=== PATIENT | male | born 1940 | race Caucasian/White ===

== ENCOUNTER → 2020-03-25 | Outpatient (CLI) | payer MEDICARE ==
[~2020-03-25] MED LIST: REGADENOSON 0.4 MG/5 ML SYRINGE IV ONE
--- NOTE | 2020-03-25 13:48 | EST ---
EXERCISE STRESS DATE OF SERVICE: 03/25/2020 AGE: 80 SEX: M HT: 6'3" WT: 235 lbs PROTOCOL: Lexiscan Cardiolite STAGE: DURATION OF EXERCISE: HEART RATE REST: 86 BLOOD PRESSURE REST: 129/93 MAXIMUM HEART RATE ACHIEVED: 94 MAXIMUM BLOOD PRESSURE: 129/93 85% MPHR: 118 100% MPHR: 139 METS: INDICATIONS: Chest pain. STRESS DATA: Heart rate is 86. Pressure is 129/93 mmHg. Baseline EKG showed sinus mechanism. The patient was given 0.4 mg of Lexiscan over 15 seconds per protocol. Max heart rate was 94 beats per minute and maximum pressure was 149/93 mmHg. Clinically the patient did not have any symptoms of chest pain or chest discomfort and the EKG did not show any significant ST or T-wave abnormalities concerning for ischemia. CONCLUSION: 1. Nondiagnostic electrocardiogram stress testing in response to Lexiscan. 2. Please follow up on the Cardiolite portion on a separate report from Radiology Department. MMODL / IJN: [id number] /
--- NOTE | 2020-03-25 14:31 | NM ---
EXAMINATION TYPE: NM stress lexiscan cardiolite DATE OF EXAM: 03/25/2020 COMPARISON: NONE HISTORY: AHSD, history of hypertension, diabetes, high cholesterol, and family history of heart attac k. TECHNIQUE: After the intravenous administration of 10.36 mCi Tc 99m Sestamibi - Cardiolite resting S PECT images acquired 45 minutes post injection. The patient received 0.4mg Lexiscan, 25.5 mCi Tc 99m Sestamibi - Stress images obtained [address] injection FINDINGS: Review of stress and rest SPECT images demonstrates no distinct perfusion abnormality. Gated analysi s shows overall slight hypokinesis and overall diminished left ventricular ejection fraction estimate d at 35 %. IMPRESSION: No convincing scintigraphic evidence for reversible ischemia. Poor ejection fraction noted.
== END | disposition home or self-care (01) ==
LOC: RADNMMAIN 08:46
PROVIDERS: ATTEND Family Medicine
DX: I25.10 Atherosclerotic heart disease of native coronary artery without angina pectoris (principal)
CPT/HCPCS: 93017; 78452; A9500; J2785

== ENCOUNTER → 2020-04-17 | Outpatient (CLI) | payer MEDICARE ==
[2020-04-17 21:15] LABS: African American GFR (CKD) 65.3 (60.0-200.0); Albumin 4.2 g/dL (3.80-4.90); Albumin/Globulin Ratio 1.91 (1.60-3.17); Anion Gap 10.6 mmol/L (4.00-12.00); BUN/Creat Ratio 22.5 Ratio (12.00-20.00); Calcium 9.3 mg/dL (8.7-10.3); Carbon Dioxide 25.4 mmol/L (21.6-31.8); Globulin 2.2 g/dL (1.6-3.3); Non-African American GFR(CKD) 56.4 (60.0-200.0); Potassium 5.1 mmol/L (3.5-5.5); Total Bilirubin 0.8 mg/dL (0.2-1.2); Total Protein 6.4 g/dL (6.2-8.2)
== END | disposition home or self-care (01) ==
LOC: LABWHC1 10:06
PROVIDERS: ATTEND Internal Medicine Cardiovascular Disease
DX: I11.0 Hypertensive heart disease with heart failure (principal); I50.9 Heart failure, unspecified
CPT/HCPCS: 36415; 80053; 83880

== ENCOUNTER → 2020-04-27 | Outpatient (CLI) | payer MEDICARE ==
[2020-04-27 12:25] LABS: Potassium 5.1 mmol/L (3.5-5.1)
[2020-04-27 12:37] LABS: HCT 51.3 % (39.0-53.0); HGB 16.5 gm/dL (13.0-17.5); MCH 32.2 pg (25.0-35.0); MCHC 32.2 g/dL (31.0-37.0); Mean Platelet Volume 7.4; Platelet Count 194 k/uL (150-450); RBC 5.13 m/uL (4.30-5.90); RDW 13.7 % (11.5-15.5); WBC 8.7 k/uL (3.8-10.6)
== END | disposition home or self-care (01) ==
LOC: LABPAT 11:18
PROVIDERS: ATTEND Internal Medicine Cardiovascular Disease
DX: Z01.818 Encounter for other preprocedural examination (principal); R07.9 Chest pain, unspecified
CPT/HCPCS: 80051; 82565; 84520; 85027

== ENCOUNTER → 2020-05-04 | Day surgery (SDC) | payer MEDICARE ==
[2020-04-30 10:18] VITALS: BMI 31.6
[~2020-05-04] MED LIST changes: +ALPRAZolam 0.25 MG TAB PO PRN; +ALPRAZolam 0.5 MG TAB PO PRN; +ASPIRIN 325 MG TAB PO STA; +ATORVASTATIN 80 MG TAB PO STA; +FUROSEMIDE 20 MG TAB PO SCH; +HEPARIN SODIUM 1,000 UN/ML (10ML VL) IV ONE; +HEPARIN SODIUM 1,000 UN/ML (10ML VL) ONE; +INSULIN ASPART (NovoLOG) 100 UNIT/ML VIAL SQ SCH; +IOPAMIDOL-370 125ML BTL INJ ONE; +ISOSORBIDE MONONITRATE ER 30 MG TAB.ER.24H PO SCH; +LIDOCAINE 1% INJ 10MG/ML (20 ML MDV) ONE; +LIDOCAINE 1% INJ 10MG/ML (20 ML MDV) SQ ONE; +MIDAZOLAM 2 MG/2 ML VIAL IV ONE; +NITROGLYCERIN 1000MCG/10ML SYRINGE INTRACORON ONE; +NITROGLYCERIN SL TABS 0.4 MG TAB SUBLINGUAL PRN; +NON FORMULARY DRUG (Benazepril Hcl [Benazepril Hcl] 20 MG Tablet) PO SCH; +NON FORMULARY DRUG (Canagliflozin [Invokana] 300 MG Tablet) PO SCH; +NON FORMULARY DRUG (Insulin Glargine 100 UNIT/ML Vial) SQ SCH; +NON FORMULARY DRUG (Simvastatin 20 MG Tab) PO SCH; +NOREPINEPHRINE 4 MG in SODIUM CHLORIDE 0.9% 250 ML IV ONE; +POTASSIUM CHLORIDE ER 20 MEQ TAB.ER PO SCH; -REGADENOSON 0.4 MG/5 ML SYRINGE IV ONE; +RX INFO: IV CONTRAST WAS GIVEN 1 EACH MISC MISCELLANE PRN; +SODIUM CHLORIDE 0.9% 1,000 ML IV SCH; +SODIUM CHLORIDE 0.9% 1,000 ML in EMPTY BAG 1 BAG IV ONE; +VERAPAMIL 2.5 MG/ML 2 ML AMP ONE; +VERAPAMIL SYRINGE (5 MG/10 ML) INTRAARTER ONE; +carvediloL 3.125 MG TAB PO SCH; +fentaNYL (PF) 50 MCG/ML 2 ML AMP IV ONE; +fentaNYL (PF) 50 MCG/ML 2 ML AMP ONE
[2020-05-04 06:30] LABS: Glucose,Whole Blood 178 mg/dL (75-99)
[2020-05-04 06:34] VITALS: RESP 18; TEMP 97.8
--- NOTE | 2020-05-04 08:41 | P.CARDCATH ---
Date of Procedure: 05/04/20 Preoperative Diagnosis: Assessment chest tightness and shortness of breath. Frequent PVCs and cardiomyopathy Postoperative Diagnosis: Moderate disease involving the mid LAD and moderate to severe disease involving the diagonal branches. Procedure(s) Performed: Left heart catheterization without left ventriculography Description of Procedure: HISTORY: This is a 80-year-old gentleman with history of hypercholesterolemia, hypertension and diabetes was experiencing exertional shortness of breath and tightness. The stress test showed an ejection fraction about 35%, but on the echocardiogram, it appeared to be 45-50. Patient also has frequent PVCs. Patient is advised to have a cardiac catheterization to rule out underlying ischemic heart. CONSENT:I have discussed the risks, benefits and alternative therapies for the above-mentioned procedure and for both sedation/analgesia as well as necessary blood product administration, if indicated, as they pertain to this patient. The patient has indicated understanding and acceptance of the risks and procedures discussed. PROCEDURE: Patient was brought to the lab in a fasting state. Patient was given some IV sedation. The right wrist is infiltrated with lidocaine and right radial artery was entered using Seldinger technique. A 6-Maltese catheter was left in place and selective coronary arteriography was performed. Patient tolerated the procedure well. Patient went on to have FFR of the LAD by Dr. Vila.. No immediate complications were noted and patient Conscious Sedation: Versed 0.5 mg Fentanyl 25 g Duration 31 minutes HEMODYNAMICS:. Aortic pressure is about 120/80. The left ventricular end- diastolic pressure not measured SELECTIVE CORONARY ARTERIOGRAPHY: LEFT MAIN: Normal length and free of occlusive disease THE LEFT ANTERIOR DESCENDING CORONARY ARTERY:. This is a fair caliber vessel giving rise to 2 diagonal branches. Both the diagonal branch is about 70-80% stenosis proximal portion. There are small in caliber. The proximal LAD is a be calcification. The mid LAD has a lesion which appears to be about 50-60%. Beyond that the LAD had mild diffuse disease THE LEFT CIRCUMFLEX AND IS CORONARY ARTERY:. This is a moderate caliber vessel giving rise to good-sized OM branch. The circumflex coronary artery is free of significant occlusive disease THE RIGHT CORONARY ARTERY:. This is a good caliber vessel giving rise to good-sized PDA and PLV. Difficult to engage. Free of any significant occlusive disease LEFT VENTRICULOGRAPHY: Not performed FINAL IMPRESSION:. Moderate to severe disease involving 2 small diagonal branches . About 50-60% stenosis of the mid LAD and diffuse wheezes involving the distal portion. Diffuse calcification of the proximal LAD. Rest of the vessels are free of any significant occlusive disease PLAN:. FFR of the LAD. If it is not significantly continued medical therapy. May consider PVC ablation PROGNOSIS: Guarded
--- NOTE | 2020-05-04 09:20 | P.PRCINT ---
Percutaneous Coronary Int. - Percutaneous Coronary Intervention Percutaneous Coronary Intervention: PROCEDURES PERFORMED: Selective left coronary angiography, iFR of mid LAD. INDICATION: Intermediate coronary artery disease, shortness of breath concerning for anginal equivalent HISTORY: Patient is a pleasant 80-year-old male with history of diabetes mellitus, hypertension who has been having some chest discomfort and shortness breath concerning for angina. Patient had a diagnostic catheterization performed by my partner and I was asked to perform iFR of an intermediate mid LAD lesion. PROCEDURE: After the risks, benefits and alternatives of the above mentioned procedure explained in detail with the patient, informed consent was obtained. The decision was made to iFR the mid LAD lesion. A 6Fr sheath had been placed in the right radial artery using modified Seldinger technique. A 6Fr C LS 4.0 guide catheter was used to engage the left main. A 0.014 iFR pressure wire was advanced into the left main and the wire was normalized. The wire was advanced and nitroglycerin was given. There was a somewhat prolonged hypotensive response to nitroglycerin and initial iFR value was also confounded by drift on pullback. Therefore the iFR wire was renormalized and repeat value was obtained at 0.93. There was no drift on pullback. Therefore any intervention was deferred. The wire was removed. The right radial sheath was removed and a TR band was placed with hemostasis achieved. The patient tolerated the procedure well. Patient was transported back to the post catheterization holding area in stable condition. Conscious Sedation: Patient was monitored under the direct supervision of vision of myself for conscious sedation using Versed and fentanyl for a total duration of 31 minutes HEMODYNAMICS: Aorta: 122/67 SELECTIVE CORONARY ARTERIOGRAPHY: LEFT MAIN: The left main is a large caliber vessel which trifurcates into the LAD, ramus and circumflex. There is no significant stenosis. LEFT ANTERIOR DESCENDING CORONARY ARTERY: LAD is a large caliber vessel which wraps around to the apex. There is a mid focal 50-70% stenosis of the LAD. Diagonal 2 is small caliber and has a 60-70% proximal stenosis. RAMUS: Moderate caliber with an origin 30-40% stenosis. LEFT CIRCUMFLEX CORONARY ARTERY: Left circumflex is a moderate caliber vessel with mild luminal irregularities and gives off 2 OM branches. RIGHT CORONARY ARTERY: Not imaged, see diagnostic report. FINAL IMPRESSION: 1. CAD as described above. 2. Normal iFR of mid LAD at 0.93. PLAN: 1. Aggressive risk factor modification per most recent ACC/AHA guidelines. 2. Defer treatment of mid LAD. Follow-up in the office in 1-2 weeks.
[2020-05-04 12:35] VITALS: BP 132/74; PULSE 79
== END | disposition home or self-care (01) ==
LOC: CATHCVL 06:05
PROVIDERS: ATTEND Internal Medicine Cardiovascular Disease
DX: I25.10 Atherosclerotic heart disease of native coronary artery without angina pectoris (principal); I25.84 Coronary atherosclerosis due to calcified coronary lesion; I10 Essential (primary) hypertension; R94.39 Abnormal result of other cardiovascular function study; I42.9 Cardiomyopathy, unspecified; E78.5 Hyperlipidemia, unspecified; E78.00 Pure hypercholesterolemia, unspecified; E11.9 Type 2 diabetes mellitus without complications; I49.9 Cardiac arrhythmia, unspecified; Z79.4 Long term (current) use of insulin; Z79.899 Other long term (current) drug therapy
CPT/HCPCS: 93571; 93454; 85347; C1887; C1769 ×2; C1894; J2250; J2001; J3010; J1644; Q9967

== ENCOUNTER → 2020-12-15 | Outpatient (CLI) | payer MEDICARE ==
--- NOTE | 2020-12-15 10:37 | US ---
EXAMINATION TYPE: US kidneys/renal and bladder DATE OF EXAM: 12/15/2020 COMPARISON: NONE CLINICAL HISTORY: N18.31 stage 3A kidney disease. abnormal labs EXAM MEASUREMENTS: Right Kidney: 10.2 x 5.2 x 5.9 cm Left Kidney: 11.3 x 4.6 x 6.3 cm Right Kidney: No hydronephrosis or masses seen Left Kidney: No hydronephrosis or masses seen Bladder: distended, anechoic Bilateral Jets not seen There is no evidence for hydronephrosis at this point in time. No nephrolithiasis is seen. No martin s are identified. The urinary bladder is anechoic. Bilateral ureteral jets are not seen. IMPRESSION: No acute process.
== END | disposition home or self-care (01) ==
LOC: RADUSWWP 09:55
PROVIDERS: ATTEND Family Medicine
DX: N18.31 Chronic kidney disease, stage 3a (principal)
CPT/HCPCS: 76770

== ENCOUNTER → 2021-03-24 | Outpatient (CLI) | payer MEDICARE ==
[2021-03-24 13:28] LABS: Appearance,Urine Clear (Clear); Bilirubin,Urine Negative (Negative); Blood,Urine Negative (Negative); Color,Urine Yellow; Glucose,Urine (UA) 4+ (Negative); Ketones,Urine Negative (Negative); Leukocyte Esterase,Urine Negative (Negative); Nitrite,Urine Negative (Negative); Protein,Urine Negative (Negative); Specific Gravity,Urine 1.027 (1.001-1.035); Urobilinogen,Urine <2.0 mg/dL (<2.0)
[2021-03-24 13:43] LABS: Creatinine,Urine Random 65.6 mg/dL; Protein/Creatinine Ratio,Urine 0.198
[2021-03-24 20:08] LABS: Basophils # (A) 0.04 X 10*3/uL (0.00-0.10); Basophils % (A) 0.5 %; Eosinophils # (A) 0.18 X 10*3/uL (0.04-0.35); Eosinophils % (A) 2.2 %; HCT 50.9 % (39.6-50.0); HGB 16.5 g/dL (13.0-17.0); Lymphocytes # (A) 2.46 X 10*3/uL (0.90-5.00); Lymphocytes % (A) 29.6 %; MCH 31.8 pg (27.0-32.0); MCHC 32.4 g/dL (32.0-37.0); MCV 98.1 fL (80.0-97.0); Mean Platelet Volume 9.8 fL (9.5-12.2); Monocytes # (A) 0.67 X 10*3/uL (0.20-1.00); Monocytes % (A) 8.1 %; Neutrophils # (A) 4.92 X 10*3/uL (1.80-7.70); Platelet Count 187 X 10*3/uL (140-440); RBC 5.19 X 10*6/uL (4.40-5.60); WBC 8.32 X 10*3/uL (4.50-10.00)
[2021-03-24 22:07] LABS: Protein, Total 6.7 g/dL (6.2-8.2)
[2021-03-24 22:15] LABS: % Iron Saturation 23.66 (15.00-50.00); African American GFR (CKD) 64.9 (60.0-200.0); Anion Gap 9.1 mmol/L (4.00-12.00); BUN/Creat Ratio 19.17 Ratio (12.00-20.00); Calcium 8.5 mg/dL (8.7-10.3); Carbon Dioxide 22.9 mmol/L (21.6-31.8); Magnesium 1.8 mg/dL (1.5-2.4); Phosphorus 3.3 mg/dL (2.4-5.1); Potassium 4.7 mmol/L (3.5-5.5); Uric Acid 5.9 mg/dL (3.7-8.7)
[2021-03-24 22:24] LABS: Ferritin 85.6 ng/mL (22.0-322.0)
== END | disposition home or self-care (01) ==
LOC: LABWHC1 12:24
DX: N18.31 Chronic kidney disease, stage 3a (principal); E55.9 Vitamin D deficiency, unspecified; N25.81 Secondary hyperparathyroidism of renal origin; M10.9 Gout, unspecified; N39.0 Urinary tract infection, site not specified; D64.9 Anemia, unspecified; R80.9 Proteinuria, unspecified
CPT/HCPCS: 36415; 80048; 81003; 82040; 82306; 82570; 82728; 83540; 83550; 83735; 83883; 83970; 84100; 84156; 84165; 84550; 85025; 86334; 86335

== ENCOUNTER → 2022-04-26 | Outpatient (CLI) | payer MEDICARE ==
--- NOTE | 2022-04-26 14:21 | MR ---
EXAMINATION TYPE: MR brain wo con DATE OF EXAM: 04/26/2022 12:51 PM COMPARISON: None CLINICAL INDICATION:Male, 82 years old with history of I67.9 CEREBROVASCULAR DISEASE, UNSPECIFIED; TECHNIQUE: Multi planar, multi sequence imaging was performed through the brain including: T1, T2, In version recovery, Diffusion weighted imaging, and gradient echo imaging. No gadolinium was given. FINDINGS: The aponte-white junctions, ventricular system, and cisterns appear unremarkable. Patchy areas of high T2 signal intensity are seen within the periventricular white matter. Midline structures show no abn ormality. Diffusion-weighted imaging shows no evidence of restricted diffusion. Susceptibility weight ed imaging demonstrates no evidence for microinfarct. The susceptibility images are motion degraded. The bone marrow signal is within normal limits. The paranasal sinuses demonstrate mild mucosal thicke vane of the maxillary sinuses. The left globe demonstrates postsurgical changes. The lenses are surgi terrence absent. Trace right mastoid air cell effusion. IMPRESSION: 1. No evidence of intracranial mass or acute/subacute infarct. 2. Nonspecific white matter changes, likely secondary to small vessel ischemic disease.
== END | disposition home or self-care (01) ==
LOC: RADMRIMAIN 12:11
PROVIDERS: ATTEND Psychiatry & Neurology Neurology
DX: I67.82 Cerebral ischemia (principal)
CPT/HCPCS: 70551

== ENCOUNTER 2022-12-24 13:35 | Inpatient (IN) | payer MEDICARE ==
[2022-12-24] MEDS ORDERED: NALOXONE 0.4 MG/ML 1 ML VIAL IV PRN (14:25)
--- NOTE | 2022-12-24 14:29 | ED ---
Fall HPI - General Chief Complaint: Fall Stated Complaint: Left hip injury Time Seen by Provider: 12/24/22 13:36 Source: patient, EMS, RN notes reviewed Mode of arrival: EMS Limitations: physical limitation - History of Present Illness Initial Comments: 82-year-old male presents emergency Department with complaint of a fall. Patient states he has cane had his dog and his other hand which he states he fell backwards. Patient states he fell onto his left hip he did strike his head with no loss conscious. Patient believes he may be on blood thinners. Patient states she's had no prior orthopedic surgery. Patient has had recent stress test and echocardiogram from cardiology. Patient has a back pain denies any paresthesias patient did get 150 g of fentanyl by EMS. - Related Data Home Medications Medication Instructions Recorded Confirmed Benazepril HCl 20 mg PO DAILY 04/30/20 12/24/22 Insulin Glargine [Lantus] 80 unit SQ HS 04/30/20 12/24/22 Simvastatin [Zocor] 20 mg PO Q48H 04/30/20 12/24/22 Insulin Aspart [NovoLOG Flexpen] 22 units SQ AC-TID 12/24/22 12/24/22 Tamsulosin [Flomax] 0.4 mg PO HS 12/24/22 12/24/22 carvediloL [Coreg] 6.25 mg PO BID 12/24/22 12/24/22 Previous Rx's Medication Instructions Recorded Isosorbide Mononitrate ER [Imdur] 30 mg PO DAILY #30 tab 05/04/20 Allergies Allergy/AdvReac Type Severity Reaction Status Date / Time No Known Allergies Allergy Verified 12/24/22 14:43 Review of Systems ROS Statement: Those systems with pertinent positive or pertinent negative responses have been documented in the HPI. ROS Other: All systems not noted in ROS Statement are negative. Past Medical History Past Medical History: Diabetes Mellitus, Hyperlipidemia, Hypertension Additional Past Medical History / Comment(s): See Dr Floyd H&P History of Any Multi-Drug Resistant Organisms: None Reported Additional Past Surgical History / Comment(s): colonoscopy, neftali cataract, one eye detached retina sx Past Anesthesia/Blood Transfusion Reactions: No Reported Reaction Past Psychological History: No Psychological Hx Reported Smoking Status: Never smoker Past Alcohol Use History: None Reported Past Drug Use History: None Reported General Exam Limitations: no limitations General appearance: alert, in no apparent distress Head exam: Present: atraumatic, normocephalic, normal inspection Respiratory exam: Present: normal lung sounds bilaterally. Absent: respiratory distress, wheezes, rales, rhonchi, stridor Cardiovascular Exam: Present: regular rate, normal rhythm, normal heart sounds. Absent: systolic murmur, diastolic murmur, rubs, gallop, clicks Extremities exam: Present: other (Shortening, rotation of left hip tenderness with palpation neurovascular intact) Back exam: Absent: tenderness Neurological exam: Present: alert, oriented X3, CN II-XII intact, reflexes nor mal. Absent: motor sensory deficit Course Vital Signs 12/24/22 14:15 Temperature 97.8 F Pulse Rate 75 Respiratory 18 Rate Blood Pressure 166/101 O2 Sat by Pulse 97 Oximetry Medical Decision Making - Medical Decision Making Was pt. sent in by a medical professional or institution (, PA, HAND CANDLE MOLDER, urgent care, hospital, or group home...) When possible be specific @ -No Did you speak to anyone other than the patient for history (EMS, parent, family, police, friend...)? What history was obtained from this source @ -EMS and family regarding past medical history, medications, current complaint of injury Did you review nursing and triage notes (agree or disagree)? Why? @ -I reviewed and agree with nursing and triage notes Were old charts reviewed (outside hosp., previous admission, EMS record, old EKG, old radiological studies, urgent care reports/EKG's, group home records)? Report findings @ -No old charts were reviewed Differential Diagnosis (chest pain, altered mental status, abdominal pain women, abdominal pain men, vaginal bleeding, weakness, fever, dyspnea, syncope, headache, dizziness, GI bleed, back pain, seizure, CVA, palpatations, mental health, musculoskeletal)? @ -Fall, left hip/femur fracture EKG interpreted by me (3pts min.). @ -As above X-rays interpreted by me (1pt min.). @ -X-ray left hip, pelvis shows some trochanteric fracture, spiral Chest x-ray one view no acute process or pneumothorax CT interpreted by me (1pt min.). @ -CT the brain, C-spine shows no acute intracranial hemorrhage, mass effect or skull fracture U/S interpreted by me (1pt. min.). @ -None done What testing was considered but not performed or refused? (CT, X-rays, U/S, labs)? Why? @ -None What meds were considered but not given or refused? Why? @ -None Did you discuss the management of the patient with other professionals (professionals i.e. , PA, HAND CANDLE M[employer]DER, lab, RT, psych nurse, social security benefits interviewer, postmaster, teacher, tourist information officer, case reviewer)? Give summary @ -Orthopedics Dr. QUINTERO for admission given patient's left femur fracture Was smoking cessation discussed for >3mins.? @ -No Was critical care preformed (if so, how long)? @ -No Were there social determinants of health that impacted care today? How? (Homelessness, low income, unemployed, alcoholism, drug addiction, transportation, low edu. Level, literacy, decrease access to med. care, [place] [facility], rehab)? @ -No Was there de-escalation of care discussed even if they declined (Discuss DNR or withdrawal of care, Hospice)? DNR status @ -No What co-morbidities impacted this encounter? (DM, HTN, Smoking, COPD, CAD, Cancer, CVA, ARF, Chemo, Hep., AIDS, mental health diagnosis, sleep apnea, morbid obesity)? @ -None Was patient admitted / discharged? Hospital course, mention meds given and route, prescriptions, significant lab abnormalities, going to OR and other p ertinent info. @ -Admitted patient has a left femur fracture. Discussed case with Dr. Kwong on- call for orthopedics patient will have consultation medical for medical management and surgical clearance. Patient has had recent cardiology clearance. Undiagnosed new problem with uncertain prognosis? @ -No Drug Therapy requiring intensive monitoring for toxicity (Heparin, Nitro, Insulin, Cardizem)? @ -No Were any procedures done? @ -No Diagnosis/symptom? @ -Fall, left femur fracture Acute, or Chronic, or Acute on Chronic? @ -Acute Uncomplicated (without systemic symptoms) or Complicated (systemic symptoms)? @ -uncomplicated Side effects of treatment? @ -No Exacerbation, Progression, or Severe Exacerbation? @ -No Poses a threat to life or bodily function? How? (Chest pain, USA, PA, pneumonia, PE, COPD, DKA, ARF, appy, cholecystitis, CVA, Diverticulitis, Homicidal, Suicidal, threat to staff... and all critical care pts) @ -No - Lab Data Result diagrams: 12/24/22 14:50 Disposition Clinical Impression: Fall, Closed left femoral fracture Disposition: ADMITTED IP TO THIS HOSP Condition: Fair Time of Disposition: 14:29
--- NOTE | 2022-12-24 14:30 | XR ---
EXAMINATION TYPE: XR chest 1V DATE OF EXAM: 12/24/2022 COMPARISON: NONE HISTORY: Presurgical study. TECHNIQUE: Single frontal supine view of the chest is obtained. FINDINGS: There is no focal air space opacity, pleural effusion, or pneumothorax seen. The cardiac silhouette size is enlarged. Structures are intact. IMPRESSION: Cardiomegaly without acute pulmonary process.
--- NOTE | 2022-12-24 14:31 | XR ---
EXAMINATION TYPE: XR Hip LT and AP Pelvis DATE OF EXAM: 12/24/2022 COMPARISON: NONE HISTORY: Pain after fall injury. TECHNIQUE: A single AP view of the pelvis is obtained. Two views of the left hip are obtained. FINDINGS: There is acute displaced spiral type fracture subTrochanteric level left proximal femur. Th ere is some impaction along with roughly 4.4 cm lateral and 3.1 cm posterior displacement of distal f racture fragment. No hip joint dislocation. Moderate to severe narrowing in the left hip joint is see n. The overlying soft tissue is unremarkable. Remainder of the pelvis shows no additional acute dis placed fracture. There is spurring and disc space narrowing in the visualized lumbar spine IMPRESSION: There is acute displaced subtrochanteric fracture of the left proximal femur.
--- NOTE | 2022-12-24 14:34 | CT ---
EXAMINATION TYPE: CT brain cspine wo con DATE OF EXAM: 12/24/2022 COMPARISON: NONE HISTORY: fall, on blood thinners with neck pain CT DLP: 1768.3 mGycm. Automated Exposure Control for Dose Reduction was Utilized. TECHNIQUE: CT scan of the head and cervical spine are performed without contrast. FINDINGS: There is no acute intracranial hemorrhage or midline shift identified. Mild/moderate vent ricular and sulcal prominence. Mild to moderate low attenuation in the deep white matter. The calvar ium is intact. The globes are intact and the visualized sinuses are clear. Cervical spine is visualized in its entirety from C1 through upper thoracic levels and demonstrates s light grade 1 retrolisthesis C3 on C4 without evidence of acute fracture or dislocation. Prevertebra l soft tissue appears within normal limits. The C1-C2 articulation is within normal limits on the co vijaya images. Vertebral body heights are maintained. Moderate to advanced disc space narrowing C3-C4 and C6-C7 levels is seen. There is mild to moderate disc space narrowing at C5-C6 level. Posterior s pur disc complexes efface the anterior thecal sac at C3-C4 and C6-C7 levels. Axial images show multil evel uncovertebral facet degenerative changes contributing to multilevel bilateral neural foraminal n arrowing. Lung apices show no pneumothorax. IMPRESSION: 1. There is no acute fracture or dislocation evident in the cervical spine. 2. No acute intracranial hemorrhage or midline shift is seen.
[2022-12-24 15:09] LABS: Basophils % (A) 0 %; Eosinophils # (A) 0.1 k/uL (0-0.7); Eosinophils % (A) 1 %; HCT 41.1 % (39.0-53.0); HGB 14.3 gm/dL (13.0-17.5); Lymphocytes # (A) 1.3 k/uL (1.0-4.8); Lymphocytes % (A) 26 %; MCH 33.6 pg (25.0-35.0); MCHC 34.8 g/dL (31.0-37.0); MCV 96.7 fL (80.0-100.0); Mean Platelet Volume 7.3; Monocytes # (A) 0.5 k/uL (0-1.0); Monocytes % (A) 10 %; Neutrophils % (A) 58 %; Platelet Count 152 k/uL (150-450); RBC 4.25 m/uL (4.30-5.90); RDW 13.6 % (11.5-15.5); WBC 5.2 k/uL (3.8-10.6)
[2022-12-24 15:23] LABS: ALT 23 U/L (4-49); AST 33 U/L (17-59); African American GFR (CKD) >90 (>60 ml/min/1.73 sqM); Albumin 3.3 g/dL (3.5-5.0); Alkaline Phosphatase 61 U/L (38-126); Anion Gap 7 mmol/L; Blood Urea Nitrogen 21 mg/dL (9-20); Calcium 8.2 mg/dL (8.4-10.2); Carbon Dioxide 29 mmol/L (22-30); Chloride 101 mmol/L (98-107); Glucose 137 mg/dL (74-99); Non-African American GFR(CKD) 79 (>60 ml/min/1.73 sqM); Sodium 137 mmol/L (137-145); Total Bilirubin 0.5 mg/dL (0.2-1.3)
[2022-12-24 15:29] LABS: INR 1.1 (<1.2); Prothrombin Time 11.6 sec (9.0-12.0)
[2022-12-24 15:33] LABS: Partial Thromboplastin Time 21.5 sec (22.0-30.0)
--- NOTE | 2022-12-24 16:25 | CT ---
EXAMINATION TYPE: CT hip LT wo con CT DLP: 1588.6 mGycm, Automated exposure control for dose reduction was used. DATE OF EXAM: 12/24/2022 3:22 PM COMPARISON: Extremity radiograph same day. CLINICAL INDICATION:Male, 82 years old with history of evaluate fracture; PHH, fracture TECHNIQUE: Axial images were obtained of the left hip without the use of IV contrast. Additional cor onal and sagittal reformatted images and soft tissue and bone window were obtained for review. 3-D re construction was created on a separate workstation. FINDINGS: Osseous: Acute displaced spiral type fracture of the proximal left femur at the subtrochanteric level . There is impaction with approximately 3.3 cm lateral and 3.1 cm of posterior superior displacement of the distal fracture fragments. Fracture appropriate superiorly through the lesser trochanter with approximately 1 mm of diastases of the fracture margin. No intra-articular extension. No additional f ractures appreciated. Moderate degenerative changes of the left hip joint. Degenerative changes of the visualized lumbar spine and sacroiliac joints. Joint: No evidence for displacement. No joint effusion. Soft tissues: Mild soft tissue swelling and intramuscular edema involving the proximal thigh. Other: Scattered colonic diverticula of the visualized colonic bowel. Atherosclerotic calcifications of the intrapelvic and left lower extremity vasculature. IMPRESSION: 1. Acute displaced spiral fracture of the left subtrochanteric femur with intertrochanteric extension . No intra-articular involvement. 2. Mild soft tissue and intramuscular edema. 3. Additional incidental findings as detailed above.
[2022-12-24 17:13] LABS: Glucose,Whole Blood 134 mg/dL (70-110)
[2022-12-24] MEDS: HYDROcodone/APAP 5-325MG 1 EACH TAB PO PRN ×2 (17:56→22:13)
[2022-12-24] MEDS: HYDROmorphone 0.5 MG/0.5 ML SYRINGE IVP PRN (19:53)
[2022-12-24] MEDS: ONDANSETRON 4 MG/2 ML VIAL IVP PRN (19:54)
[2022-12-24 20:41] LABS: Appearance,Urine Clear (Clear); Bilirubin,Urine Negative (Negative); Blood,Urine Small (Negative); Color,Urine Yellow; Glucose,Urine (UA) Negative (Negative); Ketones,Urine 2+ (Negative); Leukocyte Esterase,Urine Negative (Negative); Mucus,Urine Rare /hpf; Nitrite,Urine Negative (Negative); PH, Urine 5.5 (5.0-8.0); Protein,Urine 1+ (Negative); RBC,Urine 5 /hpf (0-5); Specific Gravity,Urine 1.022 (1.001-1.035); Urobilinogen,Urine <2.0 mg/dL (<2.0); WBC,Urine 1 /hpf (0-5)
[2022-12-24] MEDS ORDERED: INSULIN DETEMIR (LEVEMIR) 100 UNIT/ML SYR SQ ONE (22:00)
[2022-12-24 22:11] LABS: Glucose,Whole Blood 186 mg/dL (70-110)
[2022-12-24] MEDS: INSULIN ASPART (NovoLOG) 100 UNIT/ML VIAL SQ SCH (22:14)
[2022-12-25] MEDS: HYDROcodone/APAP 5-325MG 1 EACH TAB PO PRN ×4 (01:56→21:45)
[2022-12-25] MEDS: HYDROmorphone 0.5 MG/0.5 ML SYRINGE IVP PRN (02:42)
[2022-12-25 06:28] LABS: Glucose,Whole Blood 223 mg/dL (70-110)
[2022-12-25 06:28] LABS: Glucose,Whole Blood 207 mg/dL (70-110)
[2022-12-25] MEDS: INSULIN ASPART (NovoLOG) 100 UNIT/ML VIAL SQ SCH ×4 (06:30→21:47)
--- NOTE | 2022-12-25 07:54 | P.HPOR ---
History of Present Illness H&P Date: 12/25/22 Chief Complaint: Left hip fracture The patient is an 82-year-old male with a medical history including diabetes mellitus, hypertension, and hyperlipidemia, who presented to the emergency department yesterday after sustaining a fall at home. He states he fell backwards and hit his head. X-ray of the left hip upon arrival to the ER revealed a displaced subtrochanteric fracture. CT of the head was negative for fracture or bleed. The patient states he normally uses a cane at home. He was admitted to orthopedics for further evaluation and care of the left subtroch fracture. Internal medicine has been consulted for surgical clearance. Review of Systems Constitutional: Denies chills, Denies fatigue, Denies fever Cardiovascular: Denies chest pain, Denies shortness of breath Respiratory: Denies cough Gastrointestinal: Denies diarrhea, Denies nausea, Denies vomiting Musculoskeletal: left: hip pain, hip stiffness, hip swelling Neurological: Denies headaches, Denies visual changes Past Medical History Past Medical History: Diabetes Mellitus, Hyperlipidemia, Hypertension Additional Past Medical History / Comment(s): See Dr Floyd H&P History of Any Multi-Drug Resistant Organisms: None Reported Past Surgical History: Heart Catheterization Additional Past Surgical History / Comment(s): colonoscopy, neftali cataract, left eye detached retina sx Past Anesthesia/Blood Transfusion Reactions: No Reported Reaction Smoking Status: Never smoker Medications and Allergies Home Medications Medication Instructions Recorded Confirmed Type Benazepril HCl 20 mg PO DAILY 04/30/20 12/24/22 History Insulin Glargine [Lantus] 80 unit SQ HS 04/30/20 12/24/22 History Simvastatin [Zocor] 20 mg PO Q48H 04/30/20 12/24/22 History Isosorbide Mononitrate ER [Imdur] 30 mg PO DAILY #30 tab 05/04/20 12/24/22 Rx Insulin Aspart [NovoLOG Flexpen] 22 units SQ AC-TID 12/24/22 12/24/22 History Tamsulosin [Flomax] 0.4 mg PO HS 12/24/22 12/24/22 History carvediloL [Coreg] 6.25 mg PO BID 12/24/22 12/24/22 History Allergies Allergy/AdvReac Type Severity Reaction Status Date / Time No Known Allergies Allergy Verified 12/24/22 14:43 Physical Examination The patient is a 82 year old male that is no acute distress. He is alert and oriented x3. The patient's head is normocephalic and atraumatic. Exam of the cervical spine reveals no pain upon palpation or range of motion. Exam of the bilateral upper extremities reveal no obvious deformities or pain upon range of motion. There is a superficial skin tear to the left elbow. Exam of the right lower extremity reveals no pain upon palpation. Exam of the left lower extremity reveals a externally rotated and shortened leg. No pain upon palpation to the lateral hip. There is pain upon logrolling and any range of motion of the leg. His thigh is swollen and tight. Bilateral calves are soft and nontender. Patient has good foot and ankle motion bilaterally. Neurological and circulatory status is intact. Results Left hip x-rays and left hip CT reveal a displaced subtrochanteric fracture. - Labs Labs: Abnormal Lab Results - Last 24 Hours (Table) 12/24/22 12/24/22 12/24/22 Range/Units 14:50 14:50 14:50 RBC 4.25 L (4.30-5.90) m/uL APTT 21.5 L (22.0-30.0) sec BUN 21 H (9-20) mg/dL Glucose 137 H (74-99) mg/dL POC Glucose (mg/dL) (70-110) mg/dL Calcium 8.2 L (8.4-10.2) mg/dL Total Protein 6.0 L (6.3-8.2) g/dL Albumin 3.3 L (3.5-5.0) g/dL Urine Protein (Negative) Urine Ketones (Negative) Urine Blood (Negative) Urine Mucus (None) /hpf 12/24/22 12/24/22 12/24/22 Range/Units 17:12 20:11 22:09 RBC (4.30-5.90) m/uL APTT (22.0-30.0) sec BUN (9-20) mg/dL Glucose (74-99) mg/dL POC Glucose (mg/dL) 134 H 186 H (70-110) mg/dL Calcium (8.4-10.2) mg/dL Total Protein (6.3-8.2) g/dL Albumin (3.5-5.0) g/dL Urine Protein 1+ H (Negative) Urine Ketones 2+ H (Negative) Urine Blood Small H (Negative) Urine Mucus Rare H (None) /hpf 12/25/22 12/25/22 Range/Units 06:24 06:26 RBC (4.30-5.90) m/uL APTT (22.0-30.0) sec BUN (9-20) mg/dL Glucose (74-99) mg/dL POC Glucose (mg/dL) 223 H 207 H (70-110) mg/dL Calcium (8.4-10.2) mg/dL Total Protein (6.3-8.2) g/dL Albumin (3.5-5.0) g/dL Urine Protein (Negative) Urine Ketones (Negative) Urine Blood (Negative) Urine Mucus (None) /hpf H & H 12/24/22 Range/Units 14:50 Hgb 14.3 (13.0-17.5) gm/dL Hct 41.1 (39.0-53.0) % Coagulation 12/24/22 Range/Units 14:50 INR 1.1 (<1.2) Result Diagrams: 12/24/22 14:50 12/24/22 14:50 Assessment and Plan (1) Subtrochanteric fracture of left femur Current Visit: Yes Status: Acute Code(s): S72.22XA - DISPLACED SUBTROCHANTERIC FRACTURE OF LEFT FEMUR, INIT SNOMED Code(s): 518815839 (2) Diabetes mellitus Current Visit: Yes Status: Acute Code(s): E11.9 - TYPE 2 DIABETES MELLITUS WITHOUT COMPLICATIONS SNOMED Code(s): 23121028 (3) Hypertension Current Visit: Yes Status: Acute Code(s): I10 - ESSENTIAL (PRIMARY) HYPERTENSION SNOMED Code(s): 94557836 (4) Hyperlipidemia Current Visit: Yes Status: Acute Code(s): E78.5 - HYPERLIPIDEMIA, UNSPECIFIED SNOMED Code(s): 31195490 (5) Fall Current Visit: Yes Status: Acute Code(s): W19.XXXA - UNSPECIFIED FALL, INITIAL ENCOUNTER SNOMED Code(s): 6595103 Plan: The clinical and x-ray findings were discussed with the patient and his family. The case was discussed at length with Dr. Kwong. Treatment options were discussed and surgical intervention is recommended. We discussed the surgical plan as well as the expected postoperative course. Questions were invited and answered. The patient expressed understanding and wishes to proceed with surgery. The patient will be kept on bedrest. Continue PRN pain management. NPO today. He is scheduled for a closed reduction with insertion of a long gamma nail of the left hip later this morning We will await pre-op clearance from internal medicine. He has been cleared by cardiology.
[2022-12-25] MEDS: ATORVASTATIN 10 MG TAB PO SCH (08:06)
--- NOTE | 2022-12-25 08:07 | P.CRDCN ---
History of Present Illness Consult date: 12/25/22 Reason for Consult (text): Surgical clearance History of present illness: History of present illness: This is an 82 year old male patient of Dr. Vila with past medical history of hypertension, hyperlipidemia, diabetes mellitus type 2, coronary artery disease withiFR the LAD normal, recent diagnosis of obstructive sleep apnea, history of obesity and neuropathy. In 2019, patient had abnormal stress test and underwent cardiac catheterization which showed a 50-70% LAD stenosis which wasFR negative and was treated medically. He was last seen in the office on 10/13/2022 and at that time was doing well however was having shortness of breath with minimal activity occasional lightheadedness as well as off-balance issues. He underwent a Lexiscan stress test that showed inferior defect with no reversible ischemia. Echocardiogram revealed EF of 50% with mild tricuspid regurgitation and RVSP 26. Event monitor revealed a sinus rhythm with no significant tachycardia or bradycardia arrhythmias. We have been asked to evaluate the patient for pre- surgical clearance. Patient gives history that he had a trip and fall in the garage end up landing on his left hip and hit his head. He also scraped his left elbow. Patient was found to have a left hip fracture and is scheduled today for ORIF with Dr. Ramirez. He denies having tenderness or dizziness prior to the fall. Denies any recent falls or syncopal episodes. No chest pain or shor tness of breath. No palpitations. EKG sinus rhythm with no acute ST changes Chest x-ray: Cardiomegaly without acute process CBC unremarkable. INR 1.1. BUN 21 creatinine 0.9. Electrolytes within normal limits. Blood sugar 137. Liver function tests are normal. Home cardiac medications: Benazepril 10 mg daily, Coreg 6.25 mg twice daily, Imdur 30 mg daily, simvastatin 20 mg daily Review Of Systems: At the time of my evaluation: Constitutional: No fever, no chills. No weakness, fatigue or lethargy. EENT: No headache. No dizziness. Lungs: No shortness of breath, cough, no sputum production. No wheezing. Cardiovascular: No chest pain, no lower extremity edema. No palpitations. No paroxysmal nocturnal dyspnea. No orthopnea. No lightheadedness or dizziness. No syncopal episodes. Abdominal: No abdominal pain. No nausea, vomiting. No diarrhea. No constipation. No bloody or tarry stools. Genitourinary: No dysuria.. No urinary retention. Musculoskeletal: No myalgias. No muscle weakness, no frequent falls. No back pain. No neck pain. left hip pain Integumentary: No wounds. No rash. No unusual bruising. Neurologic: No aphasia. No facial droop. No change in mentation. No head injury. No headache. Physical examination: Gen: This an 82 year old male. He is resting in bed appears to be comfortable. No acute distress noted reviewed HEENT: Head is atraumatic, normocephalic. Pupils equal, round. Sclerae is anicteric. NECK: Supple. No JVD. . LUNGS: Clear to auscultation. No wheezes or rhonchi. No intercostal retractions. HEART: Regular rate and rhythm. No murmur. ABDOMEN: Soft No tenderness. EXTREMITIES: No pedal edemdorsalis pedis +2 bilaterally. Left leg rotation NEUROLOGICAL: Patient is awake, alert and oriented x3. Assessmentleft hip fracture Hypertension Hyperlipidemia Diabetes mellitus type 2 Coronary artery disease Sleep apnea Obesity Neuropathy Plan: Continue patient's current cardiac medications Patient is at acceptable risk for surgical intervention scheduled for today. Further recommendations to follow based upon clinical course Thank you kindly for this consultation. Nurse practitioner note has been reviewed, I agree with documented findings and plan of care. Patient was seen and examined. Past Medical History Past Medical History: Diabetes Mellitus, Hyperlipidemia, Hypertension Additional Past Medical History / Comment(s): See Dr Floyd H&P History of Any Multi-Drug Resistant Organisms: None Reported Past Surgical History: Heart Catheterization Additional Past Surgical History / Comment(s): colonoscopy, neftali cataract, left eye detached retina sx Past Anesthesia/Blood Transfusion Reactions: No Reported Reaction Smoking Status: Never smoker Medications and Allergies Home Medications Medication Instructions Recorded Confirmed Type Benazepril HCl 20 mg PO DAILY 04/30/20 12/24/22 History Insulin Glargine [Lantus] 80 unit SQ HS 04/30/20 12/24/22 History Simvastatin [Zocor] 20 mg PO Q48H 04/30/20 12/24/22 History Isosorbide Mononitrate ER [Imdur] 30 mg PO DAILY #30 tab 05/04/20 12/24/22 Rx Insulin Aspart [NovoLOG Flexpen] 22 units SQ AC-TID 12/24/22 12/24/22 History Tamsulosin [Flomax] 0.4 mg PO HS 12/24/22 12/24/22 History carvediloL [Coreg] 6.25 mg PO BID 12/24/22 12/24/22 History Allergies Allergy/AdvReac Type Severity Reaction Status Date / Time No Known Allergies Allergy Verified 12/24/22 14:43 Physical Exam Vitals: Vital Signs Temp Pulse Pulse Resp BP BP Pulse Ox 12/25/22 07:09 97.5 F L 100 18 117/68 93 L 12/25/22 01:39 100 18 98/61 94 L 12/24/22 19:45 98 F 110 H 18 123/79 97 12/24/22 17:22 97.7 F 93 16 143/81 94 L 12/24/22 15:51 95 18 148/91 96 12/24/22 14:15 97.8 F 75 18 166/101 97 Intake and Output 12/24/22 12/25/22 12/25/22 22:59 06:59 14:59 Output Total 400 Balance -400 Output: Urine 400 Other: Voiding Method Urinal Weight 124.738 kg Results 12/24/22 14:50 12/24/22 14:50 Cardiac Enzymes 12/24/22 Range/Units 14:50 AST 33 (17-59) U/L Coagulation 12/24/22 Range/Units 14:50 PT 11.6 (9.0-12.0) sec APTT 21.5 L (22.0-30.0) sec CBC 12/24/22 Range/Units 14:50 WBC 5.2 (3.8-10.6) k/uL RBC 4.25 L (4.30-5.90) m/uL Hgb 14.3 (13.0-17.5) gm/dL Hct 41.1 (39.0-53.0) % Plt Count 152 (150-450) k/uL Comprehensive Metabolic Panel 12/24/22 Range/Units 14:50 Sodium 137 (137-145) mmol/L Potassium 4.0 (3.5-5.1) mmol/L Chloride 101 (98-107) mmol/L Carbon Dioxide 29 (22-30) mmol/L BUN 21 H (9-20) mg/dL Creatinine 0.90 (0.66-1.25) mg/dL Glucose 137 H (74-99) mg/dL Calcium 8.2 L (8.4-10.2) mg/dL AST 33 (17-59) U/L ALT 23 (4-49) U/L Alkaline Phosphatase 61 (38-126) U/L Total Protein 6.0 L (6.3-8.2) g/dL Albumin 3.3 L (3.5-5.0) g/dL Current Medications Generic Name Dose Route Start Last Admin Trade Name Freq PRN Reason Stop Dose Admin Hydrocodone Bitart/Acetaminophen 1 each 12/24/22 14:25 12/25/22 06:29 Hydrocodone/Apap 5-325mg 1 Each Tab PO 1 each Q4HR PRN Administration Moderate Pain (Scale 4 to 6) Atorvastatin Calcium 10 mg 12/25/22 09:00 Atorvastatin 10 Mg Tab PO Q48H [facility] Carvedilol 6.25 mg 12/25/22 09:00 Carvedilol 6.25 Mg Tab PO BID [facility] Hydromorphone HCl 0.5 mg 12/24/22 14:25 12/25/22 02:42 Hydromorphone 0.5 Mg/0.5 Ml Syringe IVP 0.5 mg Q3HR PRN Administration Moderate Pain (Scale 4 to 6) Sodium Chloride 1,000 mls @ 75 mls/hr 12/25/22 08:00 Saline 0.9% IV .[id number] [facility] Insulin Aspart 0 unit 12/24/22 21:42 12/25/22 06:30 Insulin Aspart (Novolog) 100 Unit/Ml Vial SQ 4 unit ACHS [facility] Administration Protocol Insulin Detemir 80 unit 12/25/22 21:00 Insulin Detemir (Levemir) 100 Unit/Ml Syr SQ HS [facility] Isosorbide Mononitrate 30 mg 12/25/22 09:00 Isosorbide Mononitrate Er 30 Mg Tab.Er.24h PO DAILY [facility] Lisinopril 20 mg 12/25/22 09:00 Lisinopril 20 Mg Tab PO DAILY [facility] Naloxone HCl 0.2 mg 12/24/22 14:25 Naloxone 0.4 Mg/Ml 1 Ml Vial IV Q2M PRN Opioid Reversal Ondansetron HCl 4 mg 12/24/22 14:25 12/24/22 19:54 Ondansetron 4 Mg/2 Ml Vial IVP 4 mg Q8HR PRN Administration Nausea And Vomiting Tamsulosin HCl 0.4 mg 12/25/22 21:00 Tamsulosin 0.4 Mg Cap.Er.24h PO HS [facility] Intake and Output 12/24/22 12/25/22 12/25/22 22:59 06:59 14:59 Output Total 400 Balance -400 Output: Urine 400 Other: Voiding Method Urinal Weight 124.738 kg 12/24/22 14:50 12/24/22 14:50
[2022-12-25] MEDS: lisinopriL 20 MG TAB PO SCH (08:30)
[2022-12-25] MEDS: ISOSORBIDE MONONITRATE ER 30 MG TAB.ER.24H PO SCH (08:30)
[2022-12-25] MEDS: carvediloL 6.25 MG TAB PO SCH ×2 (08:30→21:45)
[2022-12-25 08:41] LABS: Glucose,Whole Blood 226 mg/dL (70-110)
[2022-12-25] MEDS ORDERED: ONDANSETRON 4 MG/2 ML VIAL IVP ONE ×2 (08:59→12:05)
[2022-12-25] MEDS ORDERED: DEXAMETHASONE SOD PHOSPHATE 4 MG/ML 1 ML VIAL IVP ONE (09:00)
[2022-12-25] MEDS ORDERED: ROCURONIUM 10 MG/ML (5 ML VIAL) IV ONE (09:16)
[2022-12-25] MEDS ORDERED: KETAMINE 10 MG/ML 20 ML VIAL ONE (09:16)
[2022-12-25] MEDS ORDERED: NEOSTIGMINE 1 MG/ML 10 ML VIAL ONE (09:16)
[2022-12-25] MEDS ORDERED: ceFAZolin 1,000 MG VIAL ONE (09:16)
[2022-12-25] MEDS ORDERED: SUCCINYLCHOLINE CHLORIDE 200 MG/10 ML VIAL IV ONE (09:16)
[2022-12-25] MEDS ORDERED: GLYCOPYRROLATE 0.2 MG/ML 2 ML VIAL ONE (09:16)
[2022-12-25] MEDS ORDERED: LIDOCAINE 2% INJ 20 MG/ML (2 ML VIAL) ONE (09:16)
[2022-12-25] MEDS ORDERED: fentaNYL (PF) 50 MCG/ML 2 ML AMP ONE (09:16)
[2022-12-25] MEDS ORDERED: SODIUM CHLORIDE 0.9% 100 ML BAG ONE (09:16)
[2022-12-25] MEDS ORDERED: PROPOFOL 10 MG/ML 20 ML VIAL IV ONE (09:16)
[2022-12-25] MEDS ORDERED: ePHEDrine 50 MG/ML 1 ML VIAL ONE (09:16)
[2022-12-25] MEDS ORDERED: PHENYLEPHRINE-0.9% NACL SYG 1,000 MCG/10 ML SYRINGE ONE (09:16)
[2022-12-25] MEDS ORDERED: LACTATED RINGERS 1,000 ML IV ONE ×2 (09:21→10:31)
[2022-12-25] MEDS ORDERED: MAGNESIUM HYDROXIDE 2,400 MG/10 ML CUP PO PRN (11:34)
[2022-12-25] MEDS ORDERED: BUPIVACAINE (PF) 0.5% 30 ML VIAL SQ ONE (11:49)
[2022-12-25] MEDS ORDERED: LIDOCAINE 1% INJ 10MG/ML (30 ML VIAL-PF) SQ ONE (11:49)
[2022-12-25] MEDS: SODIUM CHLORIDE 0.9% 1,000 ML IV SCH ×2 (12:10→22:29)
--- NOTE | 2022-12-25 12:16 | FL ---
Intraoperative/procedural fluoroscopic services were provided. Total fluoroscopy time is 3 minutes 13 seconds seconds with a total of 9 submitted images to PACS. Please see the operative/procedural note for further details. DAP: 19.749
[2022-12-25] MEDS ORDERED: droPERidol 5 MG/2 ML VIAL IVP ONE (12:20)
[2022-12-25 12:27] LABS: Glucose,Whole Blood 229 mg/dL (70-110)
[2022-12-25] MEDS ORDERED: INSULIN ASPART (NovoLOG) 100 UNIT/ML VIAL SQ ONE (12:46)
--- NOTE | 2022-12-25 14:06 | XR ---
EXAMINATION TYPE: XR Femur LT 1 View, XR Hip Limited LT DATE OF EXAM: 12/25/2022 1:54 PM INDICATION: Patient age:Male; 82 years old; Reason for study: post op ORIF evaluation; COMPARISON: 12/24/2022 TECHNIQUE: The left femur and hip was examined in Frontal and lateral projections. FINDINGS: Fixation changes intramedullary brittney in place. Hardware appears in appropriate position. Pe rsistent fracture line seen in the proximal left femur. Atherosclerosis of the arterial vasculature. IMPRESSION: Post fixation changes. Hardware appears intact. No new fractures.
--- NOTE | 2022-12-25 14:34 | P.CONS ---
History of Present Illness - Reason for Consult Consult date: 12/25/22 Medical management - History of Present Illness History of present illness; patient is a 82 year old male with past medical history of hypertension, hyperlipidemia, diabetes mellitus type 2, coronary artery disease , obstructive sleep apnea, history of obesity and neuropathy who presented to the ER after a fall. Patient stated that he tripped and fell in the garage and ended up landing on his left hip and hit his head. He also scraped his left elbow. Patient started having severe left hip pain and decided to come to the ER X-ray of the left hip showed a displaced subtrochanteric fracture. CT of the head was negative for fracture or bleed. Patient was admitted to orthopedic service. Internal medicine were consulted for medical management REVIEW OF SYSTEMS: CONSTITUTIONAL: No fever, no malaise, no fatigue. HEENT: No recent visual problems or hearing problems. Denied any sore throat. CARDIOVASCULAR: No chest pain, orthopnea, PND, no palpitations, no syncope. PULMONARY: No shortness of breath, no cough, no hemoptysis. GASTROINTESTINAL: No diarrhea, no nausea, no vomiting, no abdominal pain. NEUROLOGICAL: No headaches, no weakness, no numbness. HEMATOLOGICAL: Denies any bleeding or petechiae. GENITOURINARY: Denies any burning micturition, frequency, or urgency. MUSCULOSKELETAL/RHEUMATOLOGICAL: Left hip pain ENDOCRINE: Denies any polyuria or polydipsia. The rest of the 14-point review of systems is negative. PHYSICAL EXAMINATION: GENERAL: The patient is alert and oriented x3, not in any acute distress. Well developed, well nourished. HEENT: Pupils are round and equally reacting to light. EOMI. No scleral icterus. No conjunctival pallor. Normocephalic, atraumatic. No pharyngeal erythema. No thyromegaly. CARDIOVASCULAR: S1 and S2 present. No murmurs, rubs, or gallops. PULMONARY: Chest is clear to auscultation, no wheezing or crackles. ABDOMEN: Soft, nontender, nondistended, normoactive bowel sounds. No palpable organomegaly. MUSCULOSKELETAL: No joint swelling or deformity. EXTREMITIES: Left hip surgical incision seen NEUROLOGICAL: Gross neurological examination did not reveal any focal deficits. SKIN: No rashes. Assessment and plan Left hip fracture Hypertension Hyperlipidemia Diabetes mellitus type 2 Coronary artery disease Sleep apnea Obesity Neuropathy Plan; Monitor vital signs Monitor CBC Continue pain management per orthopedics Continue DVT prophylaxis per orthopedics Resume home meds DVT prophylaxis: Past Medical History Past Medical History: Diabetes Mellitus, Hyperlipidemia, Hypertension Additional Past Medical History / Comment(s): See Dr Floyd H&P History of Any Multi-Drug Resistant Organisms: None Reported Past Surgical History: Heart Catheterization Additional Past Surgical History / Comment(s): colonoscopy, neftali cataract, left eye detached retina sx Past Anesthesia/Blood Transfusion Reactions: No Reported Reaction Smoking Status: Never smoker Medications and Allergies Home Medications Medication Instructions Recorded Confirmed Type Benazepril HCl 20 mg PO DAILY 04/30/20 12/24/22 History Insulin Glargine [Lantus] 80 unit SQ HS 04/30/20 12/24/22 History Simvastatin [Zocor] 20 mg PO Q48H 04/30/20 12/24/22 History Isosorbide Mononitrate ER [Imdur] 30 mg PO DAILY #30 tab 05/04/20 12/24/22 Rx Insulin Aspart [NovoLOG Flexpen] 22 units SQ AC-TID 12/24/22 12/24/22 History Tamsulosin [Flomax] 0.4 mg PO HS 12/24/22 12/24/22 History carvediloL [Coreg] 6.25 mg PO BID 12/24/22 12/24/22 History Allergies Allergy/AdvReac Type Severity Reaction Status Date / Time No Known Allergies Allergy Verified 12/24/22 14:43 Physical Exam Vitals: Vital Signs Temp Pulse Pulse Resp BP BP BP 12/25/22 13:16 97.1 F L 82 20 160/81 12/25/22 13:00 81 15 154/88 12/25/22 12:45 77 16 163/77 12/25/22 12:32 77 20 155/74 12/25/22 12:17 75 22 158/87 12/25/22 12:02 97.2 F L 89 20 102/61 12/25/22 08:30 98 F 91 17 116/62 12/25/22 07:09 97.5 F L 100 18 117/68 12/25/22 01:39 100 18 98/61 12/24/22 19:45 98 F 110 H 18 123/79 12/24/22 17:22 97.7 F 93 16 143/81 12/24/22 15:51 95 18 148/91 Pulse Ox 12/25/22 13:16 95 12/25/22 13:00 95 12/25/22 12:45 91 L 12/25/22 12:32 96 12/25/22 12:17 94 L 12/25/22 12:02 95 12/25/22 08:30 94 L 12/25/22 07:09 93 L 12/25/22 01:39 94 L 12/24/22 19:45 97 12/24/22 17:22 94 L 12/24/22 15:51 96 Intake and Output 12/24/22 12/25/22 12/25/22 22:59 06:59 14:59 Intake Total 1900 Output Total 400 200 Balance -400 1700 Intake: IV 1900 Output: Urine 400 Estimated Blood Loss 200 Other: Voiding Method Urinal Weight 124.738 kg Results CBC & Chem 7: 12/24/22 14:50 12/24/22 14:50 Labs: Abnormal Lab Results - Last 24 Hours (Table) 12/24/22 12/24/22 12/24/22 Range/Units 14:50 14:50 14:50 RBC 4.25 L (4.30-5.90) m/uL APTT 21.5 L (22.0-30.0) sec BUN 21 H (9-20) mg/dL Glucose 137 H (74-99) mg/dL POC Glucose (mg/dL) (70-110) mg/dL Calcium 8.2 L (8.4-10.2) mg/dL Total Protein 6.0 L (6.3-8.2) g/dL Albumin 3.3 L (3.5-5.0) g/dL Urine Protein (Negative) Urine Ketones (Negative) Urine Blood (Negative) Urine Mucus (None) /hpf 12/24/22 12/24/22 12/24/22 Range/Units 17:12 20:11 22:09 RBC (4.30-5.90) m/uL APTT (22.0-30.0) sec BUN (9-20) mg/dL Glucose (74-99) mg/dL POC Glucose (mg/dL) 134 H 186 H (70-110) mg/dL Calcium (8.4-10.2) mg/dL Total Protein (6.3-8.2) g/dL Albumin (3.5-5.0) g/dL Urine Protein 1+ H (Negative) Urine Ketones 2+ H (Negative) Urine Blood Small H (Negative) Urine Mucus Rare H (None) /hpf 12/25/22 12/25/22 12/25/22 Range/Units 06:24 06:26 08:40 RBC (4.30-5.90) m/uL APTT (22.0-30.0) sec BUN (9-20) mg/dL Glucose (74-99) mg/dL POC Glucose (mg/dL) 223 H 207 H 226 H (70-110) mg/dL Calcium (8.4-10.2) mg/dL Total Protein (6.3-8.2) g/dL Albumin (3.5-5.0) g/dL Urine Protein (Negative) Urine Ketones (Negative) Urine Blood (Negative) Urine Mucus (None) /hpf 12/25/22 Range/Units 12:25 RBC (4.30-5.90) m/uL APTT (22.0-30.0) sec BUN (9-20) mg/dL Glucose (74-99) mg/dL POC Glucose (mg/dL) 229 H (70-110) mg/dL Calcium (8.4-10.2) mg/dL Total Protein (6.3-8.2) g/dL Albumin (3.5-5.0) g/dL Urine Protein (Negative) Urine Ketones (Negative) Urine Blood (Negative) Urine Mucus (None) /hpf
[2022-12-25] MEDS: ceFAZolin 3 GM in SODIUM CHLORIDE 0.9% 100 ML IVPB SCH (16:16)
[2022-12-25 17:00] LABS: Glucose,Whole Blood 295 mg/dL (70-110)
[2022-12-25 20:11] LABS: Glucose,Whole Blood 258 mg/dL (70-110)
[2022-12-25] MEDS: SENNOSIDES-DOCUSATE SODIUM 1 EACH TAB PO SCH (21:45)
[2022-12-25] MEDS: TAMSULOSIN 0.4 MG CAP.ER.24H PO SCH (21:45)
[2022-12-25] MEDS: INSULIN DETEMIR (LEVEMIR) 100 UNIT/ML SYR SQ SCH (21:47)
--- NOTE | 2022-12-25 22:23 | P.OP ---
Date of Procedure: 12/25/22 Preoperative Diagnosis: Left subtrochanteric femur fracture Postoperative Diagnosis: same Procedure(s) Performed: Left femur open reduction and internal fixation Implants: Gamma nail - 11mm x 420mm nail, 105mm CM screw, 5.0x55mm distal screw in locked position Anesthesia: LOTUS Surgeon: Anastacia Kwong [employer] Servicer And Installer #1: Syeda Jansen Estimated Blood Loss (ml): 200 Condition: stable Disposition: PACU Indications for Procedure: Dimitry had a ground level mechanical fall and sustained a spiral subtrochanteric fracture. After medical clearance, we decided to proceed with an ORIF. Description of Procedure: Patient, operative site, and procedure were confirmed in the preop area. After informed consent was obtained, the patient was brought back to the OR where general anesthesia was administered. The patient was then positioned on the [place] table with bony prominences protected and both feet strapped into XL boots. Under fluroscopic guidance, a closed reduction was performed with traction, internal rotation, and adduction. The extremity was then prepped and draped in normal sterile fashion. After a formal timeout was performed, a longitudinal incision was made proximal and posterior to the tip of the greater trochanter. The awl and guidewire were introduced at the tip of the trochanter in line with the femoral shaft. Placement of the guidewire was confirmed on orthogonal views. The opening reamer was used over the guidewire. A ball tip guide wire was then introduced. There was difficulty passing the wire past the fracture site. The decision was made to open for reduction. A small incision was made through skin and extended through the IT band. A ball spike pusher was inserted and used to aid in reduction. This allowed the guide wire to pass. The wire was advanced to the superior aspect of the patella. The measuring device was inserted proximally and the decision was made to use a 420mm nail. Serial reamers were then utilized to 13mm. The nail was then inserted over the guide wire and impacted to the appropriate level for a center center cephalomedullary screw. The guide wire was removed. The drill sleeves were inserted into the 125deg jig. A guide wire was placed center center on orthogonal views and advanced to subchondral bone. This measured 105mm. The drill was utilized to the same depth and a 105mm screw was inserted to prophylactically protect the femoral neck given the patient's age. The traction was then let off of the [place] table. The external rotation was set with clinical judgement compared to the rotation of the contralateral side and the fluoroscopic images of the fracture site. Perfect [place] technique was utilized to place a screw in the distal locking position. final views showed acceptable fracture reduction and hardware placement. Wounds were irrigated and closed in a layered fashion with 2.0 vicryl, 4.0 monocryl, and skin glue. Wounds were dressed with silver dressings. Patient was aroused by the anesthesia team and brought back to PACU in stable condition.
[2022-12-26] MEDS: ceFAZolin 3 GM in SODIUM CHLORIDE 0.9% 100 ML IVPB SCH (00:33)
[2022-12-26 05:30] LABS: Glucose,Whole Blood 188 mg/dL (70-110)
[2022-12-26] MEDS: HYDROcodone/APAP 5-325MG 1 EACH TAB PO PRN ×3 (06:49→17:24)
[2022-12-26] MEDS: INSULIN ASPART (NovoLOG) 100 UNIT/ML VIAL SQ SCH ×4 (06:51→20:49)
[2022-12-26] MEDS: ONDANSETRON 4 MG/2 ML VIAL IVP PRN (06:59)
[2022-12-26 08:40] LABS: HCT 37.8 % (39.6-50.0); HGB 12.1 g/dL (13.0-17.0); MCH 31.3 pg (27.0-32.0); MCV 97.9 fL (80.0-97.0); Mean Platelet Volume 9.4 fL (9.5-12.2); NRBC Per 100 WBC 0 /100 WBCS (0.0-0.0); Platelet Count 148 X 10*3/uL (140-440); RBC 3.86 X 10*6/uL (4.40-5.60); RDW 14.1 % (11.5-14.5); WBC 9.56 X 10*3/uL (4.50-10.00)
[2022-12-26] MEDS: lisinopriL 20 MG TAB PO SCH (08:56)
[2022-12-26] MEDS: ISOSORBIDE MONONITRATE ER 30 MG TAB.ER.24H PO SCH (08:56)
[2022-12-26] MEDS: ENOXAPARIN 40 MG/0.4 ML SYRINGE SQ SCH (08:56)
[2022-12-26] MEDS: carvediloL 6.25 MG TAB PO SCH ×2 (08:56→20:49)
[2022-12-26 09:33] LABS: Basophils # (A) 0.04 X 10*3/uL (0.00-0.10); Basophils % (A) 0.4 %; Eosinophils # (A) 0.18 X 10*3/uL (0.04-0.35); Eosinophils % (A) 1.9 %; Immature Grans, Automated 0.4 %; Lymphocytes # (A) 2.09 X 10*3/uL (0.90-5.00); Lymphocytes % (A) 21.9 %; Monocytes # (A) 2.02 X 10*3/uL (0.20-1.00); Monocytes % (A) 21.1 %; Neutrophils # (A) 5.19 X 10*3/uL (1.80-7.70); Neutrophils % (A) 54.3 %
[2022-12-26 09:34] LABS: RBC Morphology NORMAL
[2022-12-26 11:05] LABS: Glucose,Whole Blood 372 mg/dL (70-110)
[2022-12-26] MEDS: SODIUM CHLORIDE 0.9% 1,000 ML IV SCH (13:07)
--- NOTE | 2022-12-26 13:59 | P.PN ---
Subjective Progress Note Date: 12/26/22 Principal diagnosis: Status post left proximal femur ORIF This is a 82 year-old male post left proximal femur ORIF. This is post-op day 1. The patient was evaluated today. The patient denies nausea, vomiting, abdominal pain, chest pain, or shortness of breath this morning. He states her pain is controlled at this time. The patient has been up with physical therapy and is currently sitting in a recliner chair at the bedside. Objective - Vital Signs Vital signs: Vital Signs Temp 99.1 F 12/26/22 07:30 Pulse 104 H 12/26/22 07:30 Resp 16 12/26/22 07:30 BP 143/80 12/26/22 07:30 Pulse Ox 94 L 12/26/22 07:30 FiO2 Intake & Output 12/25/22 12/26/22 12/26/22 18:59 06:59 18:59 Intake Total 2600 Output Total 200 600 Balance 2400 -600 Intake: IV 1900 Intake, IV Titration 700 Amount Sodium Chloride 0.9% 1, 600 000 ml @ 75 mls/hr IV . [id number] GERALD Rx#:[id number] ceFAZolin 3 gm In Sodium 100 Chloride 0.9% 100 ml @ 200 mls/hr IVPB Q8HR GERALD Rx#:[id number] Output: Urine 600 Estimated Blood Loss 200 Other: Voiding Method Urinal # Voids 1 - Exam The patient does not appear in acute distress. Alert and orientated x3. D ressing was reinforced due to drainage. Incision appears fine with no erythema or active drainage. Calf is soft and nontender. Good foot and ankle motion without difficulty. Sensation and circulatory status is intact. - Labs CBC & Chem 7: 12/26/22 05:36 12/24/22 14:50 Labs: Abnormal Lab Results - Last 24 Hours (Table) 12/25/22 12/25/22 12/26/22 Range/Units 16:59 20:09 05:28 RBC (4.40-5.60) X 10*6/uL Hgb (13.0-17.0) g/dL Hct (39.6-50.0) % MCV (80.0-97.0) fL MPV (9.5-12.2) fL Monocytes # (0.20-1.00) X 10*3/uL POC Glucose (mg/dL) 295 H 258 H 188 H (70-110) mg/dL 12/26/22 12/26/22 Range/Units 05:36 11:04 RBC 3.86 L (4.40-5.60) X 10*6/uL Hgb 12.1 L (13.0-17.0) g/dL Hct 37.8 L (39.6-50.0) % MCV 97.9 H (80.0-97.0) fL MPV 9.4 L (9.5-12.2) fL Monocytes # 2.02 H (0.20-1.00) X 10*3/uL POC Glucose (mg/dL) 372 H (70-110) mg/dL Assessment and Plan (1) Subtrochanteric fracture of left femur Current Visit: Yes Status: Acute Code(s): S72.22XA - DISPLACED SUBTROCHANTERIC FRACTURE OF LEFT FEMUR, INIT SNOMED Code(s): 965953140 (2) Diabetes mellitus Current Visit: Yes Status: Acute Code(s): E11.9 - TYPE 2 DIABETES MELLITUS WITHOUT COMPLICATIONS SNOMED Code(s): 31986942 (3) Hypertension Current Visit: Yes Status: Acute Code(s): I10 - ESSENTIAL (PRIMARY) HYPERTE NSION SNOMED Code(s): 10100943 (4) Hyperlipidemia Current Visit: Yes Status: Acute Code(s): E78.5 - HYPERLIPIDEMIA, UNSPECIFIED SNOMED Code(s): 89599791 (5) Fall Current Visit: Yes Status: Acute Code(s): W19.XXXA - UNSPECIFIED FALL, INITIAL ENCOUNTER SNOMED Code(s): 1561629 Plan: 1. Continue pain control 2. Anticoagulation with Lovenox 3. Start physical therapy and ambulation. Weightbearing as tolerated. 4. Anticipate discharge to skilled rehab.
--- NOTE | 2022-12-26 14:29 | P.PN ---
Subjective Progress Note Date: 12/26/22 patient is a 82 year old male with past medical history of hypertension, hyperlipidemia, diabetes mellitus type 2, coronary artery disease , obstructive sleep apnea, history of obesity and neuropathy who presented to the ER after a fall. Patient stated that he tripped and fell in the garage and ended up landing on his left hip and hit his head. He also scraped his left elbow. Patient started having severe left hip pain and decided to come to the ER X-ray of the left hip showed a displaced subtrochanteric fracture. CT of the head was negative for fracture or bleed. Patient was admitted to orthopedic service. Internal medicine were consulted for medical management 12/26. Patient seen and examined. White count this morning is 9.56, hemoglobin 12.1, vital signs stable REVIEW OF SYSTEMS: CONSTITUTIONAL: No fever, no malaise,. CARDIOVASCULAR: No chest pain, no palpitations, no syncope. PULMONARY: No shortness of breath, no cough, GASTROINTESTINAL: No diarrhea, no nausea, no vomiting, no abdominal pain. NEUROLOGICAL: No headaches, no weakness, PHYSICAL EXAMINATION: GENERAL: The patient is alert and oriented x3, not in any acute distress. Well developed, well nourished. HEENT: Pupils are round and equally reacting to light. EOMI. No scleral icterus. No conjunctival pallor. Normocephalic, atraumatic. No pharyngeal erythema. No thyromegaly. CARDIOVASCULAR: S1 and S2 present. No murmurs, rubs, or gallops. PULMONARY: Chest is clear to auscultation, no wheezing or crackles. ABDOMEN: Soft, nontender, nondistended, normoactive bowel sounds. No palpable organomegaly. MUSCULOSKELETAL: Left hip surgical incision seen NEUROLOGICAL: Gross neurological examination did not reveal any focal deficits. SKIN: No rashes. Assessment and plan Left hip fracture Hypertension Hyperlipidemia Diabetes mellitus type 2 Coronary artery disease Sleep apnea Obesity Neuropathy Monitor vital signs Monitor CBC Monitor CMP status post left femur open reduction internal fixation Monitor blood sugar levels, continue standard scale insulin Continue pain management per orthopedics Continue DVT prophylaxis per orthopedics Follow-up and PT and OT recommendations Objective - Vital Signs Vital signs: Vital Signs Temp 99.1 F 12/26/22 07:30 Pulse 104 H 12/26/22 07:30 Resp 16 12/26/22 07:30 BP 143/80 12/26/22 07:30 Pulse Ox 94 L 12/26/22 07:30 FiO2 Intake & Output 12/25/22 12/26/22 12/26/22 18:59 06:59 18:59 Intake Total 2600 Output Total 200 600 Balance 2400 -600 Intake: IV 1900 Intake, IV Titration 700 Amount Sodium Chloride 0.9% 1, 600 000 ml @ 75 mls/hr IV . [id number] [facility]ERALD Rx#:[id number] ceFAZolin 3 gm In Sodium 100 Chloride 0.9% 100 ml @ 200 mls/hr IVPB Q8HR [facility] Rx#:[id number] Output: Urine 600 Estimated Blood Loss 200 Other: Voiding Method Urinal # Voids 1 - Labs CBC & Chem 7: 12/26/22 05:36 12/24/22 14:50 Labs: Abnormal Lab Results - Last 24 Hours (Table) 12/25/22 12/25/22 12/26/22 Range/Units 16:59 20:09 05:28 RBC (4.40-5.60) X 10*6/uL Hgb (13.0-17.0) g/dL Hct (39.6-50.0) % MCV (80.0-97.0) fL MPV (9.5-12.2) fL Monocytes # (0.20-1.00) X 10*3/uL POC Glucose (mg/dL) 295 H 258 H 188 H (70-110) mg/dL 12/26/22 12/26/22 Range/Units 05:36 11:04 RBC 3.86 L (4.40-5.60) X 10*6/uL Hgb 12.1 L (13.0-17.0) g/dL Hct 37.8 L (39.6-50.0) % MCV 97.9 H (80.0-97.0) fL MPV 9.4 L (9.5-12.2) fL Monocytes # 2.02 H (0.20-1.00) X 10*3/uL POC Glucose (mg/dL) 372 H (70-110) mg/dL
[2022-12-26 14:37] VITALS: RESP 18
[2022-12-26 16:49] LABS: Glucose,Whole Blood 290 mg/dL (70-110)
[2022-12-26 20:30] LABS: Glucose,Whole Blood 332 mg/dL (70-110)
[2022-12-26] MEDS: SENNOSIDES-DOCUSATE SODIUM 1 EACH TAB PO SCH (20:49)
[2022-12-26] MEDS: TAMSULOSIN 0.4 MG CAP.ER.24H PO SCH (20:49)
[2022-12-26] MEDS: INSULIN DETEMIR (LEVEMIR) 100 UNIT/ML SYR SQ SCH (20:50)
[2022-12-27] MEDS: SODIUM CHLORIDE 0.9% 1,000 ML IV SCH (00:55)
[2022-12-27 01:35] VITALS: PULSE 88
[2022-12-27 06:26] LABS: Glucose,Whole Blood 147 mg/dL (70-110)
[2022-12-27] MEDS: INSULIN ASPART (NovoLOG) 100 UNIT/ML VIAL SQ SCH ×2 (06:39→12:42)
[2022-12-27] MEDS: HYDROcodone/APAP 5-325MG 1 EACH TAB PO PRN ×2 (06:45→12:43)
[2022-12-27 07:34] VITALS: BP 125/73; TEMP 97.8
[2022-12-27] MEDS: ENOXAPARIN 40 MG/0.4 ML SYRINGE SQ SCH (08:19)
[2022-12-27] MEDS: lisinopriL 20 MG TAB PO SCH (08:19)
[2022-12-27] MEDS: ATORVASTATIN 10 MG TAB PO SCH (08:19)
[2022-12-27] MEDS: ISOSORBIDE MONONITRATE ER 30 MG TAB.ER.24H PO SCH (08:19)
[2022-12-27] MEDS: carvediloL 6.25 MG TAB PO SCH (08:19)
--- NOTE | 2022-12-27 09:34 | P.DS ---
Providers Date of admission: 12/24/22 14:26 Expected date of discharge: 12/27/22 Attending physician: Anastacia Kwong DO Consults: 12/24/22 14:27 Consult Physician Urgent Consulting Provider: Lona Bettencourt Consult Reason/Comments: Medical management, surgical clearance Do you want consulting provider notified?: Yes Primary care physician: Natividad Benita - Discharge Diagnosis(es) (1) Subtrochanteric fracture of left femur Current Visit: Yes Status: Acute (2) Diabetes mellitus Current Visit: Yes Status: Acute (3) Hypertension Current Visit: Yes Status: Acute (4) Hyperlipidemia Current Visit: Yes Status: Acute (5) Fall Current Visit: Yes Status: Acute Hospital Course: This is a 82 year old male who presented to the hospital post fall at home and sustained a left subtrochanteric femur fracture. The patient was cleared by medicine and cardiology for surgery. The patient underwent a left proximal femur ORIF with long Gamma nail on 12/25/[address] Kwong. The procedure was performed without complication or sequelae. The patient is doing well postoperatively. Labs and vital signs are stable on the day of discharge. On the day of discharge the patient's hip incision is healing well. There is minimal erythema. There is no drainage noted at this time. There is minimal soft tissue swelling to the hip and thigh. The patient has full foot and ankle motion without difficulty or pain. Neurovascular status to the left lower extremity is intact. The patient is discharged to skilled rehab in good condition. See medication reconciliation for accurate list of discharge medications. Pertinent Studies: Laboratory Tests 12/26/22 12/27/22 05:36 06:24 WBC 9.56 RBC 3.86 L Hgb 12.1 L Hct 37.8 L MCV 97.9 H POC Glucose (mg/dL) 147 H Patient Condition at Discharge: Stable Plan - Discharge Summary Discharge Rx Participant: No New Discharge Prescriptions: New Enoxaparin [Lovenox] 40 mg SQ DAILY #30 each Sennosides-Docusate Sodium [Senokot-S] 2 tab PO DAILY #30 tablet HYDROcodone/APAP 5-325MG [[place] 5] 1 - 2 each PO Q4-6H PRN #30 tab PRN Reason: Pain No Action Benazepril HCl 20 mg PO DAILY Insulin Glargine [Lantus] 80 unit SQ HS Simvastatin [Zocor] 20 mg PO Q48H Isosorbide Mononitrate ER [Imdur] 30 mg PO DAILY #30 tab carvediloL [Coreg] 6.25 mg PO BID Tamsulosin [Flomax] 0.4 mg PO HS Insulin Aspart [NovoLOG Flexpen] 22 units SQ AC-TID Discharge Medication List Benazepril HCl 20 mg PO DAILY 04/30/20 [History] Insulin Glargine [Lantus] 80 unit SQ HS 04/30/20 [History] Simvastatin [Zocor] 20 mg PO Q48H 04/30/20 [History] Isosorbide Mononitrate ER [Imdur] 30 mg PO DAILY #30 tab 05/04/20 [Rx] Insulin Aspart [NovoLOG Flexpen] 22 units SQ AC-TID 12/24/22 [History] Tamsulosin [Flomax] 0.4 mg PO HS 12/24/22 [History] carvediloL [Coreg] 6.25 mg PO BID 12/24/22 [History] Enoxaparin [Lovenox] 40 mg SQ DAILY #30 each 12/27/22 [Rx] HYDROcodone/APAP 5-325MG [[place] 5] 1 - 2 each PO Q4-6H PRN #30 tab 12/27/22 [Rx] Sennosides-Docusate Sodium [Senokot-S] 2 tab PO DAILY #30 tablet 12/27/22 [Rx] Follow up Appointment(s)/Referral(s): Anastacia Kwong DO [Doctor of Osteopathic Medicine] - 2 Weeks Angel Vila DO [STAFF PHYSICIAN] - 1-2 days Scotty Tuttle [NON-STAFF] - As Needed Activity/Diet/Wound Care/Special Instructions: Weightbearing as tolerated with walker Daily dressing changes on the middle and distal dressing. May change the Optifoam in 7 days unless saturated. Keep incisions clean and dry Lovenox for 4 weeks. Follow up with Dr. Kwong in 2-3 weeks. Call [facility] with questions or concerns [phone] Discharge Disposition: TRANSFER TO SNF/ECF
[2022-12-27 11:12] LABS: Glucose,Whole Blood 211 mg/dL (70-110)
--- NOTE | 2022-12-27 13:59 | P.PN ---
Subjective Progress Note Date: 12/27/22 patient is a 82 year old male with past medical history of hypertension, hyperlipidemia, diabetes mellitus type 2, coronary artery disease , obstructive sleep apnea, history of obesity and neuropathy who presented to the ER after a fall. Patient stated that he tripped and fell in the garage and ended up landing on his left hip and hit his head. He also scraped his left elbow. Patient started having severe left hip pain and decided to come to the ER X-ray of the left hip showed a displaced subtrochanteric fracture. CT of the head was negative for fracture or bleed. Patient was admitted to orthopedic service. Internal medicine were consulted for medical management 12/26. Patient seen and examined. White count this morning is 9.56, hemoglobin 12.1, vital signs stable 12/27. Patient seen and examined. No acute issues overnight. Hip pain has improved. Patient medically stable for discharge REVIEW OF SYSTEMS: CONSTITUTIONAL: No fever, no malaise,. CARDIOVASCULAR: No chest pain, no palpitations, no syncope. PULMONARY: No shortness of breath, no cough, GASTROINTESTINAL: No diarrhea, no nausea, no vomiting, no abdominal pain. NEUROLOGICAL: No headaches, no weakness, PHYSICAL EXAMINATION: GENERAL: The patient is alert and oriented x3, not in any acute distress. Well developed, well nourished. HEENT: Pupils are round and equally reacting to light. EOMI. No scleral icterus. No conjunctival pallor. Normocephalic, atraumatic. No pharyngeal erythema. No thyromegaly. CARDIOVASCULAR: S1 and S2 present. No murmurs, rubs, or gallops. PULMONARY: Chest is clear to auscultation, no wheezing or crackles. ABDOMEN: Soft, nontender, nondistended, normoactive bowel sounds. No palpable organomegaly. MUSCULOSKELETAL: Left hip surgical incision seen NEUROLOGICAL: Gross neurological examination did not reveal any focal deficits. SKIN: No rashes. Assessment and plan Left hip fracture Hypertension Hyperlipidemia Diabetes mellitus type 2 Coronary artery disease Sleep apnea Obesity Neuropathy Monitor vital signs status post left femur open reduction internal fixation Monitor blood sugar levels, continue standard scale insulin Continue pain management per orthopedics Continue DVT prophylaxis per orthopedics PT and OT recommended rehab. Patient medically stable for discharge Objective - Vital Signs Vital signs: Vital Signs Temp 97.8 F 12/27/22 07:22 Pulse 88 12/27/22 07:22 Resp 18 12/27/22 07:22 BP 125/73 12/27/22 07:22 Pulse Ox 92 L 12/27/22 07:22 FiO2 Intake & Output 12/26/22 12/27/22 12/27/22 18:59 06:59 18:59 Output Total 650 1000 Balance -650 -1000 Output: Urine 650 1000 Other: Voiding Method Urinal - Labs CBC & Chem 7: 12/26/22 05:36 12/24/22 14:50 Labs: Abnormal Lab Results - Last 24 Hours (Table) 12/26/22 12/26/22 12/26/22 Range/Units 11:04 16:47 20:27 POC Glucose (mg/dL) 372 H 290 H 332 H (70-110) mg/dL 12/27/22 Range/Units 06:24 POC Glucose (mg/dL) 147 H (70-110) mg/dL
== END 2022-12-27 13:25 | DRG 482 ==
LOC: EC 13:35 → 4SSUR 14:26
PROVIDERS: ADMIT Orthopaedic Surgery Hand Surgery; ATTEND Orthopaedic Surgery Hand Surgery
PROC: 0QS704Z Reposition Left Upper Femur with Internal Fixation Device, Open Approach (ICD-10-PCS; principal; 2022-12-25 09:00)
PROC: 2W6PX0Z Traction of Left Upper Leg using Traction Apparatus (ICD-10-PCS; principal; 2022-12-25 09:00)
DX: S72.22XA Displaced subtrochanteric fracture of left femur, initial encounter for closed fracture (principal); E11.40 Type 2 diabetes mellitus with diabetic neuropathy, unspecified; I11.9 Hypertensive heart disease without heart failure; I07.1 Rheumatic tricuspid insufficiency; S51.012A Laceration without foreign body of left elbow, initial encounter; E78.5 Hyperlipidemia, unspecified; W01.198A Fall on same level from slipping, tripping and stumbling with subsequent striking against other object, initial encounter; Z20.822 Contact with and (suspected) exposure to COVID-19; H26.9 Unspecified cataract; M54.9 Dorsalgia, unspecified; I25.10 Atherosclerotic heart disease of native coronary artery without angina pectoris; G47.33 Obstructive sleep apnea (adult) (pediatric); Y92.015 Private garage of single-family (private) house as the place of occurrence of the external cause; Y93.01 Activity, walking, marching and hiking; Z79.4 Long term (current) use of insulin; Z79.899 Other long term (current) drug therapy
CPT/HCPCS: 70450; 71045; 72125; 73501; 73502; 80053; 81001; 85025; 85610; 85730; 87635; 93005; 94660; 99285

== ENCOUNTER → 2023-07-14 | Outpatient (CLI) | payer MEDICARE ==
--- NOTE | 2023-07-15 11:00 | US ---
EXAMINATION TYPE: US arterial LE multi level DATE OF EXAM: 07/14/2023 1:56 PM CLINICAL INDICATION: Male, 83 years old with history of I73.9 PERIPHERAL VASCULAR DISEASE, UNSPECIFIE D; History of: Smoker: Former Hypertension: Yes Diabetic: Yes Hyperlipidemia: No TIA/CVA: No Previous Vascular Surgery: No CAD: No NE: No Vascular Ulcers: No Claudication: No Gangrene: No Doppler Waveforms: Right: Multiphasic at Groin, Pop, PT, and DP; monophasic at Digit Left: Monophasic at Groin, and Digit; Multiphasic at Pop, PT, and DP Right Brachial Pressure: 138 Left Brachial Pressure: 123 Ankle-Brachial Indices: Right: 1.34 Left: NC Toe Brachial Indices: Right: NC Left: NC IMPRESSION: 1. Normal right ankle-brachial indices. The left was nondiagnostic due to noncompressibility.
== END | disposition home or self-care (01) ==
LOC: RADUSWWP 13:19
PROVIDERS: ATTEND Podiatrist Foot & Ankle Surgery
DX: I73.9 Peripheral vascular disease, unspecified (principal)
CPT/HCPCS: 93922; 93923